=== PATIENT | female | born 1955 | race Two or more races ===

== ENCOUNTER → 2023-10-07 09:39 | Outpatient (REF) | payer MEDICARE, SELFPAY ==
[2023-10-07 11:24] LABS: % Basophils 0.9 % (0-2); % Immature Granulocytes 0.9 % (0-0.5); % Monocytes 8.2 % (1.7-9.3); Absolute Basophils 0.1 10^3/uL (0-0.2); Absolute Eosinophils 0.2 10^3/uL (0-0.7); Absolute Immature Granulocytes 0.1 10^3/uL (0-0.05); Absolute Lymphocytes 2.6 10^3/uL (1.2-3.4); Absolute Monocytes 0.6 10^3/uL (0.1-0.6); Hematocrit 37.5 % (37.0-47.0); Mean Corpuscular Hgb 26.6 pg (27.0-31.0); Mean Corpuscular Volume 83.1 fL (81.0-99.0); Mean Platelet Volume 9.5 fL (7.4-10.4); Nucleated Red Blood Cells % 0 %; Platelet Count 486 10^3/uL (130-400); Red Blood Cell Count 4.51 10^6/uL (4.20-5.40); Red Cell Dist. Width 13.3 % (11.5-14.5); White Blood Cell Count 7.6 10^3/uL (4.8-10.8)
[2023-10-07 12:23] LABS: ALT (SGPT) 19 U/L (0-35); AST (SGOT) 26 U/L (14-36); Albumin 4.5 g/dl (3.5-5.0); Blood Urea Nitrogen 12 mg/dl (7-17); Calcium 9.1 mg/dl (8.4-10.2); Carbon Dioxide 27 mmol/L (22-30); Chloride 102 mmol/L (98-107); Glucose 92 mg/dl (70-99); HDL Cholesterol 53 mg/dl; Iron 79 ug/dl (37-170); LDL Cholesterol, Calculated 86 mg/dl; Potassium 4.9 mmol/L (3.5-5.1); Sodium 134 mmol/L (135-145); Total Bilirubin 0.4 mg/dl (0.2-1.3); Total Cholesterol 170 mg/dl (50-199); Total Protein 7.8 g/dl (6.3-8.2); Triglyceride 159 mg/dl (10-149); Very Low Density Lipoprotein 31 mg/dl (0-30); eGFR > 60.00
[2023-10-07 12:32] LABS: Percent Saturation 20 % (20-50); Total Iron Binding Capacity 393 ug/dl (265-497)
[2023-10-07 13:44] LABS: Alkaline Phosphatase 103 U/L (38-126)
[2023-10-07 17:05] LABS: Ferritin 23.7 ng/ml (11.1-264.0)
[2023-10-07 17:21] LABS: Vitamin B12 567 pg/ml (239-931)
== END ==
LOC: REG 09:39
PROVIDERS: ATTENDING PHYSICIAN Family Medicine
DX: D50.9 Iron deficiency anemia, unspecified (principal); E53.8 Deficiency of other specified B group vitamins; E55.9 Vitamin D deficiency, unspecified; R73.03 Prediabetes; E78.2 Mixed hyperlipidemia
CPT/HCPCS: 36415; 80053; 80061; 82306; 82607; 82728; 83036; 83540; 83550; 85025

== ENCOUNTER → 2023-10-31 06:32 | Outpatient (REF) | payer MEDICARE, SELFPAY | LOC: MRI 06:32 | PROVIDERS: ATTENDING PHYSICIAN Physical Medicine & Rehabilitation; FAMILY PHYSICIAN Family Medicine | DX: M54.14 Radiculopathy, thoracic region (principal) | CPT/HCPCS: 72146 ==

== ENCOUNTER → 2023-11-10 07:16 | Outpatient (REF) | payer MEDICARE, SELFPAY | LOC: MRI 3T 07:16 | PROVIDERS: ATTENDING PHYSICIAN Physical Medicine & Rehabilitation; FAMILY PHYSICIAN Family Medicine | DX: M54.12 Radiculopathy, cervical region (principal) | CPT/HCPCS: 72141 ==

== ENCOUNTER → 2024-03-25 10:45 | Outpatient (REF) | payer MEDICARE, SELFPAY | LOC: MRI 3T 10:45 | PROVIDERS: ATTENDING PHYSICIAN Physical Medicine & Rehabilitation; FAMILY PHYSICIAN Family Medicine | DX: M54.16 Radiculopathy, lumbar region (principal) | CPT/HCPCS: 72148 ==

== ENCOUNTER → 2024-05-04 09:55 | Outpatient (REF) | payer MEDICARE, SELFPAY ==
[2024-05-04 12:22] LABS: % Basophils 0.6 % (0-2); % Eosinophils 2.8 % (0-6); % Immature Granulocytes 0.4 % (0-0.5); % Lymphocytes 39.5 % (20.5-51.1); % Monocytes 9.1 % (1.7-9.3); % Neutrophils 47.6 % (42.2-75.2); Absolute Eosinophils 0.2 10^3/uL (0-0.7); Absolute Lymphocytes 2.9 10^3/uL (1.2-3.4); Absolute Monocytes 0.7 10^3/uL (0.1-0.6); Absolute Neutrophils 3.4 10^3/uL (1.4-6.5); Hemoglobin 12.4 g/dL (12.0-16.0); Mean Corpuscular Hgb 27.5 pg (27.0-31.0); Mean Corpuscular Volume 88.7 fL (81.0-99.0); Nucleated Red Blood Cells % 0 %; Platelet Count 386 10^3/uL (130-400); Red Blood Cell Count 4.51 10^6/uL (4.20-5.40); Red Cell Dist. Width 13.6 % (11.5-14.5); White Blood Cell Count 7.2 10^3/uL (4.8-10.8)
[2024-05-04 13:02] LABS: ALT (SGPT) 28 U/L (0-35); AST (SGOT) 28 U/L (14-36); Albumin 4.6 g/dl (3.5-5.0); Alkaline Phosphatase 86 U/L (38-126); Blood Urea Nitrogen 17 mg/dl (7-17); Carbon Dioxide 28 mmol/L (22-30); Chloride 100 mmol/L (98-107); Glucose 87 mg/dl (70-99); HDL Cholesterol 62 mg/dl; Iron 103 ug/dl (37-170); LDL Cholesterol, Calculated 101 mg/dl; Potassium 4.9 mmol/L (3.5-5.1); Sodium 139 mmol/L (135-145); Total Bilirubin 0.5 mg/dl (0.2-1.3); Total Cholesterol 196 mg/dl (50-199); Total Protein 7.5 g/dl (6.3-8.2); Triglyceride 168 mg/dl (10-149); Very Low Density Lipoprotein 33 mg/dl (0-30); eGFR > 60.00
[2024-05-04 13:12] LABS: Percent Saturation 22 % (20-50); Total Iron Binding Capacity 455 ug/dl (265-497)
[2024-05-04 13:33] LABS: Ferritin 9.8 ng/ml (11.1-264.0)
[2024-05-04 13:46] LABS: Vitamin B12 490 pg/ml (239-931)
[2024-05-04 15:50] LABS: Glycohemoglobin (HgbA1c) 5.9 % (4.0-5.6)
== END ==
LOC: REG 09:55
PROVIDERS: ATTENDING PHYSICIAN Family Medicine
DX: R73.03 Prediabetes (principal); D50.9 Iron deficiency anemia, unspecified; E78.5 Hyperlipidemia, unspecified; E53.8 Deficiency of other specified B group vitamins
CPT/HCPCS: 36415; 80053; 80061; 82607; 82728; 83036; 83540; 83550; 85025

== ENCOUNTER → 2024-05-19 08:55 | Outpatient (REF) | payer MEDICARE, SELFPAY | LOC: HWRAD 08:55 | PROVIDERS: ATTENDING PHYSICIAN Internal Medicine Rheumatology; FAMILY PHYSICIAN Family Medicine | DX: M81.0 Age-related osteoporosis without current pathological fracture (principal) | CPT/HCPCS: 77080 ==

== ENCOUNTER → 2024-06-05 12:14 | Outpatient (REF) | payer MEDICARE, SELFPAY | LOC: HWWDC 12:14 | PROVIDERS: ATTENDING PHYSICIAN Family Medicine | DX: Z12.31 Encounter for screening mammogram for malignant neoplasm of breast (principal) | CPT/HCPCS: 77063; 77067 ==

== ENCOUNTER → 2024-06-20 13:44 | Outpatient (REF) | payer MEDICARE, SELFPAY ==
[2024-06-20 15:39] LABS: Hepatitis B Surface Antigen Negative (Negative)
[2024-06-20 15:57] LABS: Hepatitis B Core Ab, Total Negative (Negative); Hepatitis B Surface Antibody Negative
[2024-06-22 23:20] LABS: Alpha-1-Antitrypsin 125 mg/dL (90-200)
[2024-06-22 23:22] LABS: Ceruloplasmin 24 mg/dL (16-45)
== END ==
LOC: REG 13:44
PROVIDERS: ATTENDING PHYSICIAN Internal Medicine Gastroenterology; FAMILY PHYSICIAN Family Medicine
DX: K76.0 Fatty (change of) liver, not elsewhere classified (principal)
CPT/HCPCS: 36415; 82103; 82390; 86704; 86706; 87340

== ENCOUNTER → 2024-09-21 08:59 | Outpatient (REF) | payer MEDICARE, SELFPAY | LOC: HWRAD 08:59 | PROVIDERS: ATTENDING PHYSICIAN Physician Assistant; FAMILY PHYSICIAN Family Medicine | DX: R10.12 Left upper quadrant pain (principal) | CPT/HCPCS: 76700 ==

== ENCOUNTER → 2024-10-16 13:58 | Outpatient (REF) | payer MEDICARE, SELFPAY | LOC: HWRAD 13:58 | PROVIDERS: ATTENDING PHYSICIAN Nurse Practitioner Family | DX: M25.521 Pain in right elbow (principal); M79.671 Pain in right foot; M79.674 Pain in right toe(s) | CPT/HCPCS: 73070; 73620 ==

== ENCOUNTER → 2024-10-17 09:52 | Outpatient (REF) | payer MEDICARE, SELFPAY ==
[2024-10-17 11:04] LABS: % Basophils 0.7 % (0-2); % Eosinophils 3.2 % (0-6); % Immature Granulocytes 0.6 % (0-0.5); % Lymphocytes 33.7 % (20.5-51.1); % Monocytes 9.5 % (1.7-9.3); % Neutrophils 52.3 % (42.2-75.2); Absolute Basophils 0.1 10^3/uL (0-0.2); Absolute Eosinophils 0.2 10^3/uL (0-0.7); Absolute Lymphocytes 2.4 10^3/uL (1.2-3.4); Absolute Monocytes 0.7 10^3/uL (0.1-0.6); Absolute Neutrophils 3.8 10^3/uL (1.4-6.5); Hematocrit 39.7 % (37.0-47.0); Hemoglobin 12.7 g/dL (12.0-16.0); Mean Corpuscular Hgb 27.3 pg (27.0-31.0); Mean Corpuscular Volume 85.4 fL (81.0-99.0); Mean Platelet Volume 10.1 fL (7.4-10.4); Nucleated Red Blood Cells % 0 %; Platelet Count 384 10^3/uL (130-400); Red Blood Cell Count 4.65 10^6/uL (4.20-5.40); Red Cell Dist. Width 13.5 % (11.5-14.5); White Blood Cell Count 7.2 10^3/uL (4.8-10.8)
[2024-10-17 11:41] LABS: C-Reactive Protein < 5.00 mg/L (0.0-10.00)
[2024-10-17 11:45] LABS: ALT (SGPT) 27 U/L (0-35); AST (SGOT) 25 U/L (14-36); Albumin 4.8 g/dl (3.5-5.0); Alkaline Phosphatase 95 U/L (38-126); Blood Urea Nitrogen 11 mg/dl (7-17); Calcium 9.6 mg/dl (8.4-10.2); Carbon Dioxide 27 mmol/L (22-30); Chloride 100 mmol/L (98-107); Glucose 102 mg/dl (70-99); HDL Cholesterol 60 mg/dl; Iron 91 ug/dl (37-170); LDL Cholesterol, Calculated 122 mg/dl; Potassium 4.9 mmol/L (3.5-5.1); Sodium 139 mmol/L (135-145); Total Bilirubin 0.6 mg/dl (0.2-1.3); Total Cholesterol 215 mg/dl (50-199); Total Protein 7.6 g/dl (6.3-8.2); Triglyceride 167 mg/dl (10-149); Very Low Density Lipoprotein 33 mg/dl (0-30); eGFR > 60.00
[2024-10-17 11:55] LABS: Percent Saturation 20 % (20-50); Total Iron Binding Capacity 443 ug/dl (265-497)
[2024-10-17 12:01] LABS: Erythrocyte Sed Rate 9 mm/hour (0-20)
[2024-10-17 12:02] LABS: Vitamin D, 25-OH*** 37.7 ng/mL (30-80)
[2024-10-17 12:07] LABS: Uric Acid 5.6 mg/dl (2.5-6.2)
[2024-10-17 12:17] LABS: Ferritin 8.3 ng/ml (11.1-264.0)
[2024-10-17 12:49] LABS: Folate 9.8 ng/ml (2.76-20); Vitamin B12 316 pg/ml (239-931)
== END ==
LOC: REG 09:52
PROVIDERS: ATTENDING PHYSICIAN Family Medicine
DX: R73.03 Prediabetes (principal); M79.671 Pain in right foot; M79.674 Pain in right toe(s); M25.521 Pain in right elbow; E78.5 Hyperlipidemia, unspecified; E53.8 Deficiency of other specified B group vitamins; D50.9 Iron deficiency anemia, unspecified; E55.9 Vitamin D deficiency, unspecified
CPT/HCPCS: 36415; 80053; 80061; 82306; 82607; 82728; 82746; 83036; 83540; 83550; 84550; 85025; 85652; 86140

== ENCOUNTER → 2025-03-05 16:02 | Outpatient (REF) | payer MEDICARE, SELFPAY ==
[2025-03-05 21:50] LABS: Hepatitis C Antibody Negative (Negative)
== END ==
LOC: REG 16:02
PROVIDERS: FAMILY PHYSICIAN Family Medicine
DX: L43.8 Other lichen planus (principal)
CPT/HCPCS: 36415; 86803

== ENCOUNTER → 2025-05-04 10:24 | Outpatient (REF) | payer MEDICARE, SELFPAY | LOC: REG 10:24 | PROVIDERS: ATTENDING PHYSICIAN Internal Medicine Gastroenterology | DX: K76.0 Fatty (change of) liver, not elsewhere classified (principal) | CPT/HCPCS: 36415 ==